=== PATIENT | female | born 2000 | race Caucasian/White ===

== ENCOUNTER 2024-05-16 10:47 | Emergency (ER) | payer MEDICAID ==
[2024-05-16 11:03] LABS: BASOPHILS ABSOLUTE AUTO 0.04 K/uL (0.00-0.20); BASOPHILS PERCENT AUTO 0.6 % (0.0-1.0); EOSINOPHILS ABSOLUTE AUTO 0.16 K/uL (0.00-0.45); EOSINOPHILS PERCENT AUTO 2.3 % (0.0-6.0); HEMATOCRIT 40.6 % (37.0-47.0); HEMOGLOBIN 12.7 g/dL (12.0-16.0); IMMATURE GRAN ABSOLUTE AUTO 0.02 K/uL (0.00-0.05); IMMATURE GRAN PERCENT AUTO 0.3 % (0.0-0.4); LYMPHOCYTES ABSOLUTE AUTO 1.36 K/uL (1.00-4.80); LYMPHOCYTES PERCENT AUTO 19.9 % (24.0-44.0); MEAN CORPUSCULAR HEMOGLOBIN 23.9 pg (28.0-32.0); MEAN CORPUSCULAR HGB CONC 31.3 g/dL (32.0-36.0); MEAN CORPUSCULAR VOLUME 76.3 fL (83.0-99.0); MEAN PLATELET VOLUME 8.9 fL (9.4-12.3); MONOCYTES ABSOLUTE AUTO 0.46 K/uL (0.00-0.80); MONOCYTES PERCENT AUTO 6.7 % (0.0-8.0); NEUTROPHILS ABSOLUTE AUTO 4.81 K/uL (1.80-7.70); NEUTROPHILS PERCENT AUTO 70.2 % (41.0-71.0); PLATELET COUNT,PLT 242 K/uL (150-400); RED BLOOD CELL COUNT 5.32 M/uL (4.10-5.30); WHITE BLOOD CELL COUNT,WBC 6.85 K/uL (3.9-11.3)
[2024-05-16 11:37] LABS: ALANINE AMINOTRANSFERASE,ALT 17 IU/L (14-63); ALKALINE PHOSPHATASE 64 U/L (46-116); ASPARTATE AMNIOTRANSFERASE,AST 12 IU/L (15-37); BILIRUBIN TOTAL 0.7 mg/dL (0.2-1.0); BLOOD UREA NITROGEN,BUN 12 mg/dL (7.0-18.0); CARBON DIOXIDE,CO2 25.3 mmol/L (21.0-32.0); CHLORIDE,CL 105 mmol/L (98-107); CREATININE 0.8 mg/dL (0.6-1.0); GLUCOSE RANDOM 89 mg/dL (74-106); POTASSIUM,K 3.6 mmol/L (3.5-5.1); PROTEIN TOTAL,TP 7.9 g/dL (6.4-8.2); SODIUM,NA 141 mmol/L (136-145)
[2024-05-16 11:38] LABS: ESTIMATED GFR 105 mL/min (>60)
[2024-05-16 12:03] LABS: BILIRUBIN,URINE NEGATIVE (NEGATIVE); COLOR,URINE YELLOW; GLUCOSE,URINE NEGATIVE (NEGATIVE); KETONES,URINE NEGATIVE (NEGATIVE); LEUKOCYTE ESTERASE,URINE NEGATIVE (NEGATIVE); NITRITE,URINE NEGATIVE (NEGATIVE); OCCULT BLOOD,URINE MODERATE (NEGATIVE); PROTEIN,URINE NEGATIVE (NEGATIVE); UROBILINOGEN,URINE 0.2 EU/dL (<2.0)
[2024-05-16 12:29] LABS: APPEARANCE,URINE SLT CLOUDY; BACTERIA,URINE RARE (NEGATIVE); EPITHELIAL CELLS,URINE RARE (NONE-FEW); MUCUS,URINE MODERATE (NONE-MOD); WBC,URINE 0-1 (0-5/HPF)
== END 2024-05-16 12:10 | disposition home or self-care (01) ==
LOC: MW.ED 10:47
DX: O20.0 Threatened abortion (principal); Z3A.01 Less than 8 weeks gestation of pregnancy; Z75.8 Other problems related to medical facilities and other health care
CPT/HCPCS: 36415; 76817; 76817-26; 80053; 81001; 84702; 85025; 86900; 86901; 99283; 99284

== ENCOUNTER 2024-06-28 23:05 | Emergency (ER) | payer MEDICAID | END 2024-06-28 23:26 | disposition left against medical advice (07) | LOC: MW.ED 23:05 | DX: Z53.21 Procedure and treatment not carried out due to patient leaving prior to being seen by health care provider (principal) ==

== ENCOUNTER 2024-11-08 03:25 | Emergency (ER) | payer MEDICAID ==
[2024-11-08] MEDS: Benzocaine 20% Topical Spray UD MUCMEM ONE (03:49)
[2024-11-08] MEDS: Acetaminophen/HYDROcodone 325-10 MG Tab PO ONE (03:49)
[2024-11-08] MEDS: Lidocaine 2% Viscous Solution 15 ML UD PO ONE (03:49)
== END 2024-11-08 04:13 | disposition home or self-care (01) ==
LOC: MW.ED 03:25
DX: O99.612 Diseases of the digestive system complicating pregnancy, second trimester (principal); K02.9 Dental caries, unspecified; Z79.899 Other long term (current) drug therapy
CPT/HCPCS: 99283; A9270

== ENCOUNTER 2024-12-29 12:01 | Emergency (ER) | payer MEDICAID ==
[2024-12-29 12:31] LABS: APPEARANCE,URINE CLEAR; GLUCOSE,URINE NEGATIVE (NEGATIVE); OCCULT BLOOD,URINE NEGATIVE (NEGATIVE)
[2024-12-29 12:57] LABS: EPITHELIAL CELLS,URINE FEW (NONE-FEW)
== END 2024-12-29 12:58 | disposition home or self-care (01) ==
LOC: MW.ED 12:01
DX: O23.42 Unspecified infection of urinary tract in pregnancy, second trimester (principal); N39.0 Urinary tract infection, site not specified; Z3A.20 20 weeks gestation of pregnancy; Z75.3 Unavailability and inaccessibility of health-care facilities; Z79.899 Other long term (current) drug therapy
CPT/HCPCS: 81001; 81025; 87086; 99283

== ENCOUNTER 2025-04-06 08:42 | Emergency (ER) | payer MEDICAID ==
[2025-04-06] MEDS: Amoxicillin/Clavulanate K 875-125 MG Tab PO ONE (10:54)
== END 2025-04-06 10:57 | disposition home or self-care (01) ==
LOC: MW.ED 08:42
DX: O99.613 Diseases of the digestive system complicating pregnancy, third trimester (principal); K03.81 Cracked tooth; Z75.3 Unavailability and inaccessibility of health-care facilities; Z3A.34 34 weeks gestation of pregnancy; Z79.899 Other long term (current) drug therapy
CPT/HCPCS: 99282; A9270